=== PATIENT | female | born 1975 | race African-American/Black ===

== ENCOUNTER 2021-06-13 10:34 | Emergency (ER) | payer OTHER ==
[~2021-06-13] VITALS: Ht 167.6 cm; Wt 90.7 kg
[~2021-06-13 10:34] MED LIST: BACTRIM DS TAB1 EACH PO; MOBIC7.5 MG PO; NEURONTIN 300300 M1 PO; no home meds
[2021-06-13 11:54] LABS: URINE BILIRUBIN NEGATIVE (Negative); URINE BLOOD 3+ (Negative); URINE CLARITY CLEAR; URINE COLOR YELLOW; URINE GLUCOSE-RANDOM* NEGATIVE (Negative); URINE KETONES NEGATIVE (Negative); URINE LEUKOCYTES-REFLEX NEGATIVE (Negative); URINE NITRITE-REFLEX NEGATIVE (Negative); URINE PROTEIN (DIPSTICK) NEGATIVE (Negative); URINE SPECIFIC GRAVITY >= 1.030 (1.005-1.035); URINE UROBILINOGEN 0.2 E.U./dl (0.2-1.0)
[2021-06-13 12:18] LABS: CASTS None Seen /LPF (None Seen); SQUAMOUS 4-10 Moderate /LPF (0-3)
[2021-06-13 12:19] LABS: MUCUS >6 Heavy strn/LPF (None Seen)
[2021-06-13 12:20] LABS: BACTERIA-REFLEX 1-9 Few /HPF (None Seen); CRYSTALS None Seen /LPF (None Seen); URINE RBC 1-2 Rare /HPF (NONE SEEN); URINE WBC-REFLEX 0-5 Rare /HPF (0-5)
[2021-06-13 13:55] LABS: HEMOGLOBIN 8.8 gm/dL (12.0-15.0); MCH 23.3 pg (26.0-34.0); MCHC 31.5 g/dL (28.0-37.0); RBC 3.79 mil/uL (4.20-5.00); RDW 19.8 % (10.5-14.5); WBC 5.6 thou/uL (4.0-11.0)
[2021-06-13 14:13] LABS: CALCIUM 8.6 mg/dL (8.5-10.1); CREATININE 0.9 mg/dL (0.6-1.0); POTASSIUM 3.4 mmol/L (3.5-5.1)
[2021-06-13 14:18] LABS: ALBUMIN 3.9 g/dL (3.4-5.0); MAGNESIUM 2.2 mg/dL (1.8-2.4); TOTAL BILIRUBIN 0.3 mg/dL (0.2-1.0); TOTAL PROTEIN 7.6 g/dL (6.4-8.2)
[2021-06-13 15:17] VITALS: BP 149/98
== END 2021-06-13 15:17 | disposition home or self-care (01) ==
LOC: ER 10:34
PROVIDERS: Nurse Practitioner Family
DX: M25.562 Pain in left knee (principal); M25.561 Pain in right knee; D64.9 Anemia, unspecified; R20.2 Paresthesia of skin; G62.9 Polyneuropathy, unspecified; F12.90 Cannabis use, unspecified, uncomplicated; Z98.890 Other specified postprocedural states